=== PATIENT | female | born 1935 | race Caucasian/White ===

== ENCOUNTER 2016-09-08 22:26 | Inpatient (IN) | payer MEDICARE, BC ==
[~2016-09-08] VITALS: Ht 165.1 cm; Wt 68.0 kg
[~2016-09-08 22:26] MED LIST: ELIMITE 5% CREA60 GM TOPIC; PERMETHRIN60 GM TOPIC
[2016-09-08 22:30] VITALS: BP 118/78
[2016-09-08] MEDS ORDERED: Morphine Sulfate 4mg/ml Inj IVP ONE (23:15)
[2016-09-09] VITALS (7 sets, daily range): BP systolic 99–128; BP diastolic 60–86
[2016-09-09 00:05] LABS: BASOPHILS % (AUTO) 0.9 % (0.0-2.0); EOSINOPHILS % (AUTO) 3.1 % (0.0-3.0); LYMPHOCYTES % (AUTO) 35.8 % (20.0-45.0); MEAN CORPUSCULAR HEMOGLOBIN 31.1 PG (27.0-31.0); MEAN CORPUSCULAR HGB CONC 34.9 G/DL (32.0-36.0); MEAN CORPUSCULAR VOLUME 89 FL (80-99); MEAN PLATELET VOLUME 6.9 FL (6.5-10.1); MONOCYTES % (AUTO) 7.8 % (1.0-10.0); NEUTROPHILS % (AUTO) 52.3 % (45.0-75.0); PLATELET COUNT 149 K/UL (150-450); RED BLOOD COUNT 4.03 M/UL (4.20-5.40); RED CELL DISTRIBUTION WIDTH 12.6 % (11.6-14.8); WHITE BLOOD COUNT 8.6 K/UL (4.8-10.8)
[2016-09-09 00:06] LABS: APPEARANCE,URINE CLEAR; KETONES,URINE NEGATIVE (NEGATIVE); LEUKOCYTE ESTERASE ,URINE NEGATIVE (NEGATIVE); NITRITE,URINE NEGATIVE (NEGATIVE); PH,URINE 6.5 (4.5-8.0); PROTEIN,URINE NEGATIVE (NEGATIVE); UROBILINOGEN,URINE 1 MG/DL (0.0-1.0)
[2016-09-09 00:17] LABS: BACTERIA,URINE FEW /HPF; RBC,URINE 15-20 /HPF (0 - 2); SQUAMOUS EPITHELIAL CELL,UR FEW /LPF (NONE/OCC); WBC,URINE 0-2 /HPF (0 - 2)
[2016-09-09 00:18] LABS: PROTHROMBIN TIME 10.3 SEC (9.30-11.50)
[2016-09-09 00:25] LABS: ANION GAP 13 (5-15); CALCIUM 9.7 mg/dL (8.6-10.2); CARBON DIOXIDE 26 mEQ/L (20-30); CHLORIDE 102 mEQ/L (98-107); CREATININE 0.9 mg/dL (0.5-0.9); HEMOLYSIS 13; POTASSIUM 4.2 mEQ/L (3.4-4.9); SODIUM 141 mEQ/L (135-145)
--- NOTE | 2016-09-09 02:09 | Emergency Room Report ---
History of Present Illness General Chief Complaint: Multiple Trauma/Fall Source: Patient, Family Member, EMS Present Illness HPI Is a 80-year-old female with no significant past medical history.. She presents with chief complaint of a fall and head and hip injury. She was walking down the steps at [employer] and fell. She landed on her left side. She sustained a laceration to her left cheek and also left hip pain. Unable walk. Pain is a 5/10. Worse with movement. Better with rest. Denies any other complaint. Allergies: Coded Allergies: PENICILLINS (Verified Allergy, Unknown, 09/08/16) Patient History Past Medical History: see triage record, old chart reviewed, HTN Past Surgical History: other Pertinent Family History: none Social History: Denies: smoking Last Menstrual Period: NONE Now: No Immunizations: other - allergy to tetanus Reviewed Nursing Documentation: PMH: Agreed, PSxH: Agreed Nursing Documentation-PM Past Medical History: No Stated History Review of Systems Eye: Denies: blurred vision, eye pain ENT: Denies: ear pain, nose congestion, throat swelling Respiratory: Denies: cough, shortness of breath Cardiovascular: Denies: chest pain, palpitations Gastrointestinal: Denies: abdominal pain, diarrhea, nausea, vomiting Musculoskeletal: Reports: joint pain, Denies: back pain Skin: Denies: rash Neurological: Denies: headache, numbness Endocrine: Denies: increased thirst, increased urine Hematologic/Lymphatic: Denies: easy bruising All Other Systems: negative except mentioned in HPI Physical Exam Vital Signs Date Time Temp Pulse Resp B/P Pulse Ox O2 Delivery O2 Flow Rate FiO2 09/08/16 22:28 98.1 67 18 118/78 98 Room Air vitals normal Sp02 EP Interpretation: reviewed, normal General Appearance: well appearing, no apparent distress, alert Head: normocephalic, other - 2.5 cm horizontal laceration to the left cheek. No foreign body. Gaping. Eyes: bilateral eye EOMI, bilateral eye PERRL ENT: hearing grossly normal, normal pharynx Neck: full range of motion, supple, no meningismus Respiratory: chest non-tender, lungs clear, normal breath sounds Cardiovascular #1: regular rate, rhythm, no murmur Gastrointestinal: normal bowel sounds, non tender, no mass, no organomegaly, no bruit, non-distended Musculoskeletal: back normal, other - Left hip: Leg is shortened and internally rotated. Tender to palpation over the hip. Neurologic: alert, oriented x3 Psychiatric: mood/affect normal Skin: warm/dry Procedures Laceration/Wound Repair Laceration/Wound Repair : Consent: Verbal Wound Location: face Wound's Depth, Shape: into muscle, linear, contused tissue Wound Length (cm): 2 Wound Explored: clean Irrigated w/ Saline (ccs): 500 Betadine Prep?: No Anesthesia: 1% Lidocaine Volume Anesthetic (ccs): 2 Wound Repaired With: sutures Suture Size/Type: 6:0, nylon Number of Sutures: 6 Patient Tolerated: Well Complications: None Medical Decision Making Diagnostic Impression: Primary Impression: Intertrochanteric fracture of left hip Qualified Codes: S72.142A - Displaced intertrochanteric fracture of left femur , initial encounter for closed fracture Additional Impressions: Head injury, acute, without loss of consciousness Qualified Codes: S09.90XA - Unspecified injury of head, initial encounter Facial laceration Qualified Codes: S01.81XA - Laceration without foreign body of other part of head, initial encounter ER Course This patient presents with a left hip fracture secondary to a fall. No syncope. Is no intracranial injury. Patient will be admitted here. Her primary care doctor is Dr. Deanna Walker from [facility]. I discussed the case with Dr. Manzanares who will be admitting for Dr. Bradford. She wanted Dr. Quezada orthopedic consultation. I contacted him for consult. Laboratory Tests Test 09/08/16 23:40 White Blood Count 8.6 K/UL (4.8-10.8) Red Blood Count 4.03 M/UL (4.20-5.40) L Hemoglobin 12.6 G/DL (12.0-16.0) Hematocrit 36.0 % (37.0-47.0) L Mean Corpuscular Volume 89 FL (80-99) Mean Corpuscular Hemoglobin 31.1 PG (27.0-31.0) H Mean Corpuscular Hemoglobin Concent 34.9 G/DL (32.0-36.0) Red Cell Distribution Width 12.6 % (11.6-14.8) Platelet Count 149 K/UL (150-450) L Mean Platelet Volume 6.9 FL (6.5-10.1) Neutrophils (%) (Auto) 52.3 % (45.0-75.0) Lymphocytes (%) (Auto) 35.8 % (20.0-45.0) Monocytes (%) (Auto) 7.8 % (1.0-10.0) Eosinophils (%) (Auto) 3.1 % (0.0-3.0) H Basophils (%) (Auto) 0.9 % (0.0-2.0) Prothrombin Time 10.3 SEC (9.30-11.50) Prothromb Time International Ratio 1.0 (0.9-1.1) Activated Partial Thromboplast Time 23 SEC (23-33) Urine Color Yellow Urine Appearance Clear Urine pH 6.5 (4.5-8.0) Urine Specific Sheldahl 1.015 (1.005-1.035) Urine Protein Negative (NEGATIVE) Urine Glucose (UA) Negative (NEGATIVE) Urine Ketones Negative (NEGATIVE) Urine Occult Blood 3+ (NEGATIVE) H Urine Nitrite Negative (NEGATIVE) Urine Bilirubin Negative (NEGATIVE) Urine Urobilinogen 1 MG/DL (0.0-1.0) H Urine Leukocyte Esterase Negative (NEGATIVE) Urine RBC 15-20 /HPF (0 - 2) H Urine WBC 0-2 /HPF (0 - 2) Urine Squamous Epithelial Cells Few /LPF (NONE/OCC) Urine Bacteria Few /HPF (NONE) Sodium Level 141 mEQ/L (135-145) Potassium Level 4.2 mEQ/L (3.4-4.9) Chloride Level 102 mEQ/L (98-107) Carbon Dioxide Level 26 mEQ/L (20-30) Anion Gap 13 (5-15) Blood Urea Nitrogen 26 mg/dL (7-23) H Creatinine 0.9 mg/dL (0.5-0.9) Estimat Glomerular Filtration Rate mL/min (>60) Glucose Level 98 mg/dL (74-106) Calcium Level 9.7 mg/dL (8.6-10.2) Lab Results Impression labs unremarkable EKG Diagnostic Results Rate: normal Rhythm: NSR ST Segments: no acute changes Rhythm Strip Diag. Results EP Interpretation: yes Rate: 74 Rhythm: NSR, no PVC's, no ectopy Chest X-Ray Diagnostic Results EP Interpretation: Yes Findings: no consolidation, no effusion, no pneumothorax, no acute cardiopulmonary disease Number of Views: 1 CT/MRI/US Diagnostic Results CT/MRI/US Diagnostic Results : Imaging Test Ordered: CT Pelvis And CT head Impression Read by radiologist. Displaced left intertrochanteric fracture. CT head: Read by radiologist. Negative. Last Vital Signs Date Time Temp Pulse Resp B/P Pulse Ox O2 Delivery O2 Flow Rate FiO2 09/08/16 22:30 98.1 67 18 118/78 98 Room Air Status: improved Disposition: HOME, SELF-CARE Condition: Stable Referrals: NON PHYSICIAN (PCP) RAFAELA FABIAN M.D. September 09, 2016 02:09
[2016-09-09] MEDS ORDERED: COZAAR25 MG ORAL (02:16)
[2016-09-09] MEDS ORDERED: Norco 5mg/325mg tab ORAL PRN (02:30)
[2016-09-09] MEDS: D5 1/2NS 1,000 ML IV SCH ×2 (03:53→17:02)
[2016-09-09] MEDS: Hydromorphone 0.5mg/0.5ml inj IVP PRN ×2 (06:36→21:34)
--- NOTE | 2016-09-09 11:07 | Diagnostic Imaging Report ---
Indication: Hip pain. Pelvic trauma Technique: continuous helical imaging in the transaxial plane was performed from the iliac crests to the pubic symphysis. Coronal 2-D reformatted images were also generated. Study obtained in a Siemens Sensation [address] total DLP 452 mGycm CTD/vol 16 mGy Comparison: None Findings: There is no evidence of an acute fracture or significant malalignment identified on this examination. There is a comminuted fracture of the intertrochanteric aspect of the left hip with avulsion of the lesser and greater trochanters and multiple fracture lines. Hip joint alignment is normal. Bones are osteopenic. There are no additional fractures identified. Vacuum phenomena within the sacroiliac joints and the visualized lower lumbar discs with osteophytes noted. The right hip is unremarkable. There is a soft tissue contusion injury involving the left gluteal region and area of the left hip in association with the trauma. There is a Patel catheter which appears to be in good position. Arterial calcifications noted within the iliac arteries. Normal appendix incidentally noted. Impression: Acute comminuted intertrochanteric fracture of the left hip with overlying soft tissue contusion. Patel catheter Osteoporosis Degenerative arthropathy [facility] has communicated the preliminary results to the Emergency Department. Their findings are largely concordant with this report. The CT scanner at [facility] is accredited by the [employer] and the scans are performed using dose optimization techniques as appropriate to a performed exam including Automatic Exposure control.
--- NOTE | 2016-09-09 11:07 | Diagnostic Imaging Report ---
Indication: Trauma. Chest pain Comparison: 07/04/11 A single view chest radiograph was obtained. Findings: Study is limited by rotation. Bones are osteopenic. Scoliosis is present. The lungs are clear. No definite pneumothorax identified. Mediastinum is somewhat prominent likely on the basis of ectatic aorta. Findings grossly unchanged from the prior study. Impression: No acute findings
--- NOTE | 2016-09-09 11:07 | Diagnostic Imaging Report ---
Indication: Headache. Trauma Technique: Contiguous 5 mm thick transaxial imaging of the head obtained in a Siemens Sensation [address] scanner. Soft tissue and bone windows generated. Total Dose length Product (DLP): [address] Dose Index Volume (CTDIvol): 70.38 mGy Comparison: none Findings: There is CSF attenuation left frontal subdural focus measuring 8 mm on transaxial imaging. This could be a old subdural hematoma or CSF hygroma. There is no associated mass effect. There is no midline shift. There is no evidence of acute hemorrhage. The ventricles and basal cisterns are normal. There is mild generalized atrophy in keeping with the patient's age as well as some minimal scattered patchy areas of low attenuation involving white matter tracts. 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 No associated mass effect or edema. Age-related findings as discussed above. [facility] has communicated the preliminary results to the Emergency Department. Their findings are largely concordant with this report. The CT scanner at [facility] is accredited by the [employer] and the scans are performed using dose optimization techniques as appropriate to a performed exam including Automatic Exposure control.
--- NOTE | 2016-09-09 13:20 | History & Physical ---
History and Physical History & Physicial dict L hip fx Facial laceration Fall HTN OK for surgery DEBI ADAMS September 09, 2016 13:20
--- NOTE | 2016-09-09 18:49 | Cardiology Report ---
APPROVED REPORT EKG Measurement Heart [id number] Normal sinus rhythm Nonspecific ST and T wave abnormality Abnormal ECG
[2016-09-09] MEDS ORDERED: D5 1/2NS 1000ml IV ONE (21:34)
--- NOTE | 2016-09-09 21:49 | History and Physical Report ---
DATE OF ADMISSION: 09/09/2016 CHIEF COMPLAINT: Left hip pain after a fall. HISTORY OF PRESENT ILLNESS: The patient is a very pleasant 80-year-old woman who comes to the hospital after she fell in a [place]store after she tripped over a step that she did not see. She had a laceration to her left cheek and pain in the left hip. X-rays showed fracture. She was unable to stand and was brought in by paramedics. PAST MEDICAL HISTORY: Hypertension and hyperlipidemia. PAST SURGICAL HISTORY: section. ALLERGIES: To penicillin and tetanus. MEDICATIONS: Reviewed. SOCIAL HISTORY: She lives with her daughter. She does not drink or smoke. She is a past smoker. REVIEW OF SYSTEMS: Otherwise unremarkable. PHYSICAL EXAMINATION: GENERAL: The patient is alert and responds appropriately. VITAL SIGNS: Vital signs are normal. SKIN: The skin is warm and dry. HEENT: The head shows a dressing over the left cheek where a 2.5 cm laceration was sutured. NECK: Has no jugular venous distention. CHEST: Clear. CARDIAC: Rhythm is regular. ABDOMEN: Soft and nontender. EXTREMITIES: Tender over the left hip. No clubbing, cyanosis, or edema. IMPRESSION: 1. Intertrochanteric fracture, left hip with displacements. 2. Head injury without loss of consciousness. 3. Facial laceration. 4. Hypertension. 5. Hyperlipidemia. PLAN: The patient will be seen by Orthopedics and a left hip surgery is contemplated. I discussed her care in detail with the patient's daughter, the nurse, and the primary care physician, Dr. Walker. She will likely require placement in a rehabilitation facility at discharge. Dave Bradford M.D. DR: ARCADIO JOB#: [id number] CC: Dave Bradford M.D.; Fax#: [phone] Patel, M.D. ; Fax#: [phone]
[2016-09-10] VITALS (12 sets, daily range): BP systolic 95–151; BP diastolic 54–77
[2016-09-10] MEDS: D5 1/2NS 1,000 ML IV SCH (04:37)
[2016-09-10] MEDS: Hydromorphone 0.5mg/0.5ml inj IVP PRN ×2 (04:37→11:41)
--- NOTE | 2016-09-10 10:59 | Anethesia Preoperative Eval ---
Anesthesia Pre-op PMH/ROS General Date of Evaluation: September 10, 2016 Time of Evaluation: 10:55 Anesthesiologist: Felipe ASA Score: ASA 2 Mallampati Score Class I : Soft palate, uvula, fauces, pillars visible Class II: Soft palate, uvula, fauces visible Class III: Soft palate, base of uvula visible Class IV: Only hard plate visible Mallampati Classification: Class II Surgeon: Damien Diagnosis: L hip Fx. Surgical Procedure: ORIF of L hip Fx Anesthesia History: none Social History: smoking - h/o Family History: no anesthesia problems Allergies: Coded Allergies: PENICILLINS (Verified Allergy, Unknown, 09/08/16) Medications: see eMAR Past Medical History Cardiovascular: Reports: HTN, Denies: CAD, OK, arrhythmia, other, valve dz Pulmonary: Denies: COPD, BEVERLEY, asthma, other Gastrointestinal/Genitourinary: Reports: GERD - mild, Denies: CRI, ESRD, other Neurologic/Psychiatric: Reports: depression/anxiety, Denies: CVA, TIA, dementia, other Endocrine: Denies: DM, hypothyroidism, other, steroids HEENT: Denies: NEZ PERCE (L), NEZ PERCE (R), cataract (L), cataract (R), glaucoma, other Hematology/Immune: Denies: DVT, anemia, bleeding disorder, other Musculoskeletal/Integumentary: Reports: DJD, other - osteoporosis PMH Narrative: admitted for acute mechanical fall hip Fx L face laceration PSxH Narrative: C - section Anesthesia Pre-op Phys. Exam Physician Exam Last Vital Signs Date Time Temp Pulse Resp B/P Pulse Ox O2 Delivery O2 Flow Rate FiO2 09/10/16 07:47 97.8 77 19 143/61 93 Room Air 78 Constitutional: NAD Neurologic: CN 2-12 intact Cardiovascular: RRR, no M/R/G Respiratory: CTA Gastrointestinal: S/NT/ND Airway Exam Mallampati Score: Class II MO: limited Neck: stiff ROM: limited Teeth: missing Dentures: no lower, no upper Anesthesia Pre-op A/P Labs see chart Studies Pre-op Studies: EKG - NSR Risk Assessment & Plan Assessment: ASA 2 Plan: SAB vs GA Status Change Before Surgery: No NAVEED DELGADO M.D. September 10, 2016 10:59
--- NOTE | 2016-09-10 14:09 | General Progress Note ---
Assessment/Plan Assessment/Plan 1. Intertrochanteric fracture, left hip. 2. Head injury without loss of consciousness. 3. Facial laceration. 4. Hypertension. 5. Hyperlipidemia. stable for surgery Subjective Constitutional: Reports: no symptoms Cardiovascular: Denies: chest pain Respiratory: Denies: shortness of breath Allergies: Coded Allergies: PENICILLINS (Verified Allergy, Unknown, 09/08/16) Subjective pain L hip Objective Last 24 Hour Vital Signs Date Time Temp Pulse Resp B/P Pulse Ox O2 Delivery O2 Flow Rate FiO2 09/10/16 13:41 98.2 09/10/16 11:47 100.2 81 19 151/77 94 Room Air 09/10/16 07:47 97.8 77 19 143/61 93 Room Air 78 09/10/16 04:00 97.8 77 17 116/65 95 Room Air 77 09/10/16 00:00 98.3 70 19 112/73 98 Room Air 70 09/09/16 20:00 97.7 78 18 125/72 94 Room Air 09/09/16 16:15 97.9 72 19 124/75 95 Room Air 72 Intake and Output 09/09/16 09/10/16 19:00 07:00 Intake Total 1305 ml 675 ml Output Total 1000 ml Balance 1305 ml -325 ml Intake Oral 480 ml IV Total 825 ml 675 ml Output Urine Total 1000 ml Height (Feet): 5 Height (Inches): 5.00 Weight (Pounds): 150 General Appearance: WD/WN, no apparent distress, alert DEBI ADAMS September 10, 2016 14:09
[2016-09-10 14:43] LABS: APPEARANCE,URINE CLEAR; KETONES,URINE NEGATIVE (NEGATIVE); LEUKOCYTE ESTERASE ,URINE 1+ (NEGATIVE); NITRITE,URINE NEGATIVE (NEGATIVE); PH,URINE 5 (4.5-8.0); PROTEIN,URINE 1+ (NEGATIVE); UROBILINOGEN,URINE NORMAL MG/DL (0.0-1.0)
[2016-09-10 14:54] LABS: BACTERIA,URINE FEW /HPF; RBC,URINE 20-30 /HPF (0 - 2); SQUAMOUS EPITHELIAL CELL,UR FEW /LPF (NONE/OCC)
[2016-09-10] MEDS ORDERED: Bupivacaine 0.5% Inj 30 ml vial INJ ONE (16:12)
[2016-09-10] MEDS ORDERED: Bacitracin 50000 Units Vial ONE (16:12)
[2016-09-10] MEDS ORDERED: Duramorph PF 5mg/10ml amp ONE (16:12)
--- NOTE | 2016-09-10 16:59 | Pre-Procedure Note/Attestation ---
Pre-Procedure Note/Attestation Complete Prior to Procedure Planned Procedure: left Procedure Narrative: hip orif Indications for Procedure Pre-Operative Diagnosis: left it fx Attestation I attest that I discussed the nature of the procedure; its benefits; risks and complications; and alternatives (and the risks and benefits of such alternatives ), prior to the procedure, with the patient (or the patient's legal applications sales representative). I attest that, if there was a reasonable possibility of needing a blood transfusion, the patient (or the patient's legal applications sales representative) was given the [facility] standardized written summary, pursuant to the Felix Alda Blood Safety Act ([place] Health and Safety Code # 1645, as amended). I attest that I re-evaluated the patient just prior to the surgery and that there has been no change in the patient's H&P, except as documented below: JESSE GALE September 10, 2016 16:59
[2016-09-10] MEDS ORDERED: Morphine Sulfate 2mg/ml Inj IVP PRN ×2 (17:00)
[2016-09-10] MEDS ORDERED: Norco 7.5mg/325mg tab ORAL PRN (17:00)
[2016-09-10] MEDS ORDERED: Norco 5mg/325mg tab ORAL PRN (17:00)
[2016-09-10] MEDS ORDERED: Fleet's Enema 133ml RECTAL PRN (17:00)
[2016-09-10] MEDS ORDERED: Milk of Magnesia 30ml Ud ORAL PRN (17:00)
--- NOTE | 2016-09-10 17:00 | Operative Note - PDOC ---
Operative Note Operative Note Pre-op Diagnosis: left it fx Procedure: orif left hip Post-op Diagnosis: same as pre-op Anesthesia: regional Specimen: none Complications: none Condition: stable Estimated Blood Loss: none Implant(s) used?: Yes EJSSE GALE September 10, 2016 17:00
[2016-09-10] MEDS ORDERED: Bupivacaine w/Epi 0.5% 30ml Vial INJ ONE (17:40)
[2016-09-10] MEDS ORDERED: fentaNYL 100 mcg/2 mL IV PRN (17:45)
[2016-09-10] MEDS ORDERED: LR 1000ml 1,000 ML IVLG SCH (18:00)
--- NOTE | 2016-09-10 18:06 | Immediate Post-Op Evaluation ---
Immediate Post-Op Evalulation Immediate Post-Op Evalulation Procedure: ORIF of L hip Fx Date of Evaluation: September 10, 2016 Time of Evaluation: 18:05 IV Fluids: 800 Blood Products: none Estimated Blood Loss: 50 Urinary Output: 100 Blood Pressure Systolic: 107 Blood Pressure Diastolic: 56 Pulse Rate: 78 Respiratory Rate: 20 O2 Sat by Pulse Oximetry: 99 Temperature (Fahrenheit): 97.6 Pain Score (1-10): 1 Nausea: No Vomiting: No Complications none Patient Status: reacts, patent, none Hydration Status: adequate NAVEED DELGADO M.D. September 10, 2016 18:06
[2016-09-10] MEDS: Pericolace tab ORAL SCH (21:04)
[2016-09-10] MEDS: D5 1/2NS w/KCl 20mEq 1,000 ML IV SCH (21:04)
[2016-09-10] MEDS ORDERED: ceFAZolin sod 2 GM in D5W 110 ML IV SCH (22:00)
[2016-09-10] MEDS: DiphenhydrAMINE 50mg/ml Inj IVP PRN (22:47)
[2016-09-10] MEDS: Clindamycin 600mg 50 ML IV SCH (23:03)
[2016-09-11] VITALS (7 sets, daily range): BP systolic 91–137; BP diastolic 53–73
--- NOTE | 2016-09-11 02:01 | Consultation ---
DATE OF CONSULTATION: 09/10/2016 CHIEF COMPLAINT: Left hip pain. HISTORY OF PRESENT ILLNESS: The patient is a pleasant female, who sustained a mechanical fall. She was brought to the ER and was diagnosed with left intertrochanteric hip fracture. Orthopedic consultation for further care and recommendation. PAST MEDICAL HISTORY: Reviewed from the intake chart. PAST SURGICAL HISTORY: Reviewed from the intake chart. MEDICATIONS: Reviewed from the intake chart. PHYSICAL EXAMINATION: The patient is alert. She is resting comfortable in bed. She has pain in transition of left hip. Posterior calf is soft. Neurovascular is normal. IMAGING STUDY: Showed a comminuted left intertrochanteric hip fracture. ASSESSMENT: Left intertrochanteric hip fracture. DISCUSSION: At this point, we are going to proceed with open reduction and internal fixation. The risks, limitations, expectations and complications of the procedure were discussed in detail. All questions were addressed to the patient, but also the family. We discussed with her the alternatives. At this point, we will be on a way to get her up and prevent medical complications and proceed with surgery. Therefore, we will proceed with surgery tomorrow. She will be NPO after midnight in anticipation of surgery. Carroll Quezada M.D. DR: TOYA JOB#: [id number] CC:
--- NOTE | 2016-09-11 03:51 | Operative Note - Dictated ---
DATE OF OPERATION: 09/10/2016 PREOPERATIVE DIAGNOSIS: Left two-part intertrochanteric fracture. POSTOPERATIVE DIAGNOSIS: Left two-part intertrochanteric fracture. PROCEDURE PERFORMED: Open reduction and internal fixation left two-part intertrochanteric fracture with device. SURGEON: Carroll Quezada M.D. ANESTHESIA: Spinal. INDICATION FOR PROCEDURE: The patient is a pleasant 80-year-old female, who sustained a complex fall. She was diagnosed with a left intertrochanteric fracture treated by open reduction and internal fixation. Risks, limitations, expectations and complications of the procedure were discussed in detail with the family. All questions were addressed. DESCRIPTION OF PROCEDURE: An informed consent was obtained. The patient was taken to the operative room and placed under spinal anesthesia. The patient was then carefully placed on the fracture table. Reduction of the left hip fracture was performed. The left hip was prepped and draped in a sterile manner. Time-out was performed. Ancef was administered. The lateral skin incision was then made. Guidewire was put in the proximal aspect of the femur and proximal opening reamer was then placed and a short gamma nail was placed. With the second stab incision, a guidewire was placed into the neck head junction. A 95 mm gamma screw was then placed. The screw was set. The third stab incision, a 30 mm distal locking screw was placed. At this point, the target device was removed. The wound was copiously irrigated. The skin was closed with 1 Vicryl suture, 2-0 Vicryl suture, and 3-0 Monocryl suture. Compression dressing was applied. The patient was awoken and taken to recovery room with stable vital signs. ESTIMATED BLOOD LOSS: 25 mL. COMPLICATIONS: None. SPECIMENS: None. IMPLANT: A short gamma nail. Carroll Quezada M.D. DR: TOYA JOB#: [id number] CC:
[2016-09-11] MEDS: Clindamycin 600mg 50 ML IV SCH (06:00)
[2016-09-11] MEDS: D5 1/2NS w/KCl 20mEq 1,000 ML IV SCH ×2 (08:53→22:40)
[2016-09-11] MEDS: DiphenhydrAMINE 50mg/ml Inj IVP PRN (08:53)
[2016-09-11] MEDS: Pericolace tab ORAL SCH ×2 (08:54→18:30)
[2016-09-11] MEDS: Enoxaparin 40mg Inj SUBQ SCH (08:57)
--- NOTE | 2016-09-11 09:55 | 48 Hour Post Anesthesia Eval ---
Post Anesthesia Evaluation Procedure: ORIF of L hip Fx Date of Evaluation: September 11, 2016 Time of Evaluation: 06:50 Blood Pressure Systolic: 100 0: 57 Pulse Rate: 89 Respiratory Rate: 20 Temperature (Fahrenheit): 96.4 O2 Sat by Pulse Oximetry: 92 Airway: patent Nausea: No Vomiting: No Pain Intensity: 1 Hydration Status: adequate Cardiopulmonary Status: at baseline Mental Status/LOC: patient returned to baseline Post-Anesthesia Complications: 0 Follow-up care needed: N/A - further care as per dung velasquez GEMA M.D. September 11, 2016 09:55
--- NOTE | 2016-09-11 13:37 | Diagnostic Imaging Report ---
Indications: hip pain Findings: Intraoperative, fluoroscopic views of the left hip were obtained. Dynamic hip screw placement on the left hip demonstrated on multiple views. Impression: Intraoperative imaging
--- NOTE | 2016-09-11 17:22 | General Progress Note ---
Assessment/Plan Assessment/Plan 1. Intertrochanteric fracture, left hip. 2. Head injury without loss of consciousness. 3. Facial laceration. 4. Hypertension. 5. Hyperlipidemia. tolerated surgery well ambulating w help BP ok; no rx needed dc tomorrow to snf Subjective Constitutional: Reports: no symptoms Allergies: Coded Allergies: PENICILLINS (Verified Allergy, Unknown, 09/08/16) Subjective pain L hip Objective Last 24 Hour Vital Signs Date Time Temp Pulse Resp B/P Pulse Ox O2 Delivery O2 Flow Rate FiO2 09/11/16 12:06 99.0 84 20 115/69 97 Room Air 09/11/16 09:55 89 20 92 09/11/16 08:00 97.7 83 20 91/53 93 Room Air 09/11/16 04:48 96.4 89 20 100/57 92 Room Air 20 09/11/16 00:24 99.3 93 18 117/65 92 Room Air 93 09/10/16 19:08 97.3 81 22 103/59 98 Nasal Cannula 3.0 09/10/16 19:00 82 21 97/60 98 Nasal Cannula 3.0 09/10/16 18:45 80 19 95/62 98 Nasal Cannula 3.0 09/10/16 18:30 81 13 98/59 96 Room Air 09/10/16 18:20 72 15 102/61 100 Simple Mask 6.0 09/10/16 18:15 71 22 99/54 100 Simple Mask 6.0 09/10/16 18:10 69 14 101/59 100 Simple Mask 6.0 09/10/16 18:06 78 20 99 09/10/16 18:02 97.9 73 13 107/62 100 Simple Mask 6.0 Intake and Output 09/10/16 09/11/16 19:00 07:00 Intake Total 1590 ml 995 ml Output Total 1610 ml 600 ml Balance -20 ml 395 ml Intake Oral 240 ml IV Total 1350 ml 995 ml Output Urine Total 1600 ml 600 ml Estimated Blood Loss 10 ml Height (Feet): 5 Height (Inches): 5.00 Weight (Pounds): 150 General Appearance: no apparent distress Cardiovascular: normal rate DEBI ADAMS September 11, 2016 17:22
[2016-09-12 04:00] VITALS: BP 100/66
[2016-09-12 08:29] VITALS: BP 91/56
[2016-09-12] MEDS: Enoxaparin 40mg Inj SUBQ SCH (09:00)
[2016-09-12] MEDS: Pericolace tab ORAL SCH ×2 (09:25→17:46)
[2016-09-12 11:49] VITALS: BP 120/73
[2016-09-12] MEDS: D5 1/2NS w/KCl 20mEq 1,000 ML IV SCH (12:40)
[2016-09-12] MEDS ORDERED: BISAC-EVAC10 MG RECTAL (15:30)
[2016-09-12] MEDS ORDERED: LOVENOX10 M4 SUBQ (15:30)
[2016-09-12] MEDS ORDERED: PERI-COLACE1 EA ORAL (15:30)
[2016-09-12] MEDS ORDERED: NORCO 5-325 TA1 EACH ORAL (15:30)
--- NOTE | 2016-09-12 15:34 | Discharge Summary ---
Discharge Summary Hospital Course Date of Admission September 09, 2016 at 00:58 Date of Discharge 09/12/16 Admitting Diagnosis LEFT HIP FRACTURE JC Damon Host is a 80 year old female who was admitted on September 09, 2016 at 00:58 for Left Hip Fracture Consultations ortho Procedures ORIF L hip Hospital Course hip fx repaired w ORIF L hip dc to snf Discharge Medications New Medications: Bisacodyl (Bisac-Evac) 10 Mg Supp.rect 10 MG RECTAL Q12H PRN, #1 SUPP Docusate Sod/Senna (Docusate Sodium-Senna Tablet) 1 Each Tablet 1 EA ORAL TWICE A DAY, #1 TAB Enoxaparin* (Lovenox*) 40 Mg/0.4 Ml Inj 40 MG SUBQ DAILY, #1 EA Hydrocodone Bit/Acetaminophen 5-325* ([place] 5-325*) 1 Each Tablet 2 TAB ORAL Q6H PRN, #1 TAB Discontinued Medications: Losartan Potassium* (Cozaar*) 25 Mg Tablet 25 MG ORAL DAILY, TAB Discharge Condition Upon Discharge: improving Discharge Disposition Patient was discharged to snf Discharge Diagnoses: (1) Intertrochanteric fracture of left hip (2) Hip fracture, left (3) Facial laceration (4) Head injury, acute, without loss of consciousness DEBI ADAMS September 12, 2016 15:34
[2016-09-12 16:08] VITALS: BP 118/77
[2016-09-12] MEDS ORDERED: D5 1/2NS 1000ml IV ONE (19:14)
[2016-09-12] MEDS ORDERED: Tubing IV Secondary IV ONE (19:14)
== END 2016-09-12 19:15 | DRG 482 ==
LOC: EDBD 22:26 → EMR 23:04 → 4W 09-09 00:58 → EDBEDREQ 09-09 01:57 → 4W 09-09 02:51
PROC: 0KQ13ZZ Repair Facial Muscle, Percutaneous Approach (ICD-10-PCS; principal; 2016-09-09)
PROC: 0QS704Z Reposition Left Upper Femur with Internal Fixation Device, Open Approach (ICD-10-PCS; 2016-09-10)
DX: S72.142A Displaced intertrochanteric fracture of left femur, initial encounter for closed fracture (principal); S09.90XA Unspecified injury of head, initial encounter; I10 Essential (primary) hypertension; S01.412A Laceration without foreign body of left cheek and temporomandibular area, initial encounter; S09.12XA Laceration of muscle and tendon of head, initial encounter; W10.8XXA Fall (on) (from) other stairs and steps, initial encounter; Y92.89 Other specified places as the place of occurrence of the external cause; E78.5 Hyperlipidemia, unspecified
CPT/HCPCS: 36415; 70450; 71010; 72192; 73502; 76001; 80048; 81001; 85025; 85610; 85730; 87086; 87181; 93005; 94003; 94150; C9399; J2405; S0077

== ENCOUNTER 2017-09-12 21:43 | Emergency (ER) | payer MEDICARE, BC ==
[~2017-09-12 21:43] MED LIST changes: +BISAC-EVAC10 MG RECTAL; +COZAAR25 MG ORAL; +LOVENOX10 M4 SUBQ; +NORCO 5-325 TA1 EACH ORAL; +PERI-COLACE1 EA ORAL
--- NOTE | 2017-09-13 04:59 | Emergency Room Report ---
History of Present Illness General Chief Complaint: To Be Triaged Present Illness Allergies: Coded Allergies: PENICILLINS (Verified Allergy, Unknown, 09/08/16) Nursing Documentation-PMH Hx Cardiac Problems: Yes Hx Hypertension: Yes Hx Cancer: No Hx Gastrointestinal Problems: Yes Hx Neurological Problems: No Medical Decision Making Diagnostic Impression: Primary Impression: Patient left without being seen ER Course Patient left without being seen Status: unchanged Disposition: LEFT W/OUT BEING SEEN Condition: Unknown Referrals: NOT CHOSEN IPA/,REFERRING (PCP) Devante Cespedes MD September 13, 2017 04:59
== END 2017-09-12 22:12 | disposition left against medical advice (07) ==
LOC: EMR 22:12
DX: Z53.21 Procedure and treatment not carried out due to patient leaving prior to being seen by health care provider (principal)